=== PATIENT | female | born 1970 | race Caucasian/White ===

== ENCOUNTER → 2022-12-27 13:16 | Outpatient (CLI) | payer BC, SELFPAY ==
--- NOTE | ~2022-12-27 | XR_ITS ---
EXAMINATION: XR lumbar spine 2-3V DATE: 12/27/2022 13:28 INDICATION: Low back injury. Low back pain. TECHNIQUE: 3 views of lumbar spine were obtained. COMPARISON: None. FINDINGS: There is 8 degrees levocurvature of thoracolumbar spine. Vertebral body heights and interve rtebral disc heights are normal. There are endplate osteophytes at multiple levels. There is a sclero tic lesion in L3 vertebral body. 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 IMPRESSION: 1. Mild lumbar spondylosis. 2. Sclerotic lesion in L3 vertebral body, most likely a benign bone island. Metastatic disease cannot be excluded. Consider noncontrast lumbar spine CT . Reviewed, dictated and finalized at location A. RETORT OPERATOR IMPRESSION: 1. Mild lumbar spondylosis. 2. Sclerotic lesion in L3 vertebral body, most likely a benign bone island. Met astatic disease cannot be excluded. Consider noncontrast lumbar spine CT .
== END ==
PROVIDERS: PCP Clinical Nurse Specialist; Visit Provider Clinical Nurse Specialist
DX: M54.50 Low back pain, unspecified (principal); M47.816 Spondylosis without myelopathy or radiculopathy, lumbar region; M89.9 Disorder of bone, unspecified
CPT/HCPCS: 72100

== ENCOUNTER → 2023-01-01 15:31 | Outpatient (CLI) | payer BC, SELFPAY ==
--- NOTE | ~2023-01-01 | CT_ITS ---
EXAMINATION: CT lumbar spine wo con DATE: 01/01/2023 15:52 INDICATION: L3 sclerotic lesion. TECHNIQUE: Computed tomography (CT) of the lumbar spine was performed without intravenous contrast. A utomated exposure control and iterative reconstruction technique were employed. The dose-length produ ct was 541.57 mGy-cm. COMPARISON: Lumbar spine radiographs 12/27/2022 FINDINGS: There is 4 degrees levocurvature of lumbar spine. There is 2 mm anterolisthesis of L4 on L5 . Vertebral body heights are normal. There is a sclerotic lesion in L3 vertebral body with attenuatio n of 1188 HU, consistent with a benign bone island. The intervertebral disc heights are normal in lum bar spine. The following disc levels are specifically discussed: L1-L2: The disc is bulging. There is mild lateral facet joint osteoarthritis. There is no neural fora alejandro stenosis. There is mild central canal stenosis. L2-L3: The disc is bulging. There is moderate right and mild left facet joint osteoarthritis. There i s mild right neural foraminal stenosis. There is mild central canal stenosis. L3-L4: The disc is bulging. There is severe right and moderate left facet joint osteoarthritis. There is mild bilateral neural foraminal stenosis. There is mild central canal stenosis. L4-L5: The disc is bulging. There is severe bilateral facet joint osteoarthritis. There is mild bilat eral neural foraminal stenosis. There is mild central canal stenosis. L5-S1: The disc is bulging. There is severe bilateral facet joint osteoarthritis. There is mild bilat eral neural foraminal stenosis. There is mild central canal stenosis. IMPRESSION: 1. Benign bone island in L3 vertebral body. 2. Mild lumbar spondylosis. Reviewed, dictated and finalized at location A. RAM CONSULTANT
== END ==
PROVIDERS: PCP Clinical Nurse Specialist; Visit Provider Clinical Nurse Specialist
DX: M89.9 Disorder of bone, unspecified (principal); M47.816 Spondylosis without myelopathy or radiculopathy, lumbar region
CPT/HCPCS: 72131

== ENCOUNTER 2023-02-16 09:45 | Outpatient (RCR) | payer BC, SELFPAY ==
[2023-01-04 09:48] VITALS: BP_SYST 150
--- NOTE | 2023-01-04 15:25 | PTOPEVAL1 ---
Assessment and note entered by Francisco Cat, PT, DPT Evaluation Information Assessment Status Evaluation Diagnosis L shoulder pain Onset 3 years Subjective Information Pt states she has had shoulder pain for 3 years after lifting something heavy. She has done varius treatments for it without much relief. Her motion has improved over the years but her pain has not. Pt states waking up intermittently in the night d /t pain. Pt states she is unable to hold her 2 year old granddaughter d/t pain. Reported Pain Level Pain Score 3: Self Report Assessment PT Clinical Summary Laura Moses presents to therapy today for her initial evaluation with a diagnosis of L shoulder and L hip pain. She states the L shoulder is more problematic and she would like to address this first. Today she demonstrates active shoulder ROM that is grossly 150 deg into flexion and abduction , this is WFL but decreased from the uninvolved side. She demonstrates lex shoulder strength that is grossly 4/5. She has increased tenderness to palpation along the anterior muscle belly of her L biceps and into L upper trap but her shoulder pain does not change based on her position. Skilled physical therapy services are indicated to promote improved strength and ROM, to improve mobility, and to limit functional impairments. Plan of Care Interventions Check Out for Orthotic/Pr,Electrical Stimulation, Hot Pack/Cold Pack,Manual Therapy,Neuro Re- education,Patient/Caregiver Educati,Therapeutic Activities,Therapeutic Exercise PT Services Indicated Yes Treatment Frequency and 1x/wk for 6 wks Duration These treatments will address the objective and functional deficits as defined above. The patient will be advanced safely and appropriately in order for the patient to progress towards his/her prior level of function. Additional exercises will be introduced and as well as a comprehensive home exercise program upon discharge, if needed, ?to ensure carryover of functional gains achieved in the clinic. This treatment plan has been reviewed and agreement upon by the patient.
--- NOTE | 2023-01-12 09:12 | PCPTNOTE ---
Pt cancelled todays appt due henrique illness.
--- NOTE | 2023-01-19 09:57 | PCPTNOTE ---
Patient cancelled appointment this date due to arriving at the wrong time.
[2023-02-16 10:02] VITALS: BP_SYST 165
--- NOTE | 2023-02-16 10:45 | PTOPDC ---
Assessment and note entered by Francisco Cat, PT, DPT Evaluation Information Assessment Status Discharge Diagnosis L shoulder pain Onset 3 years Subjective Information Pt arrived 20 mins late for her scheduled appointment this date. Pt states her shoulder still hurts and she has noticed no improvement. She states her arms are more firm, so thats nice . She states the exercises irritate her shoulder. Pt states her shoulder pain gets worse when the kids at her work pull on her arms. Pt states she can now sleep through the night and did not do that before. Reported Pain Level Pain Score 6: Self Report Assessment PT Clinical Summary Laura presents to therapy today for her progress report following 4 visits of skilled therapy to treat pain in her L shoulder. Today she reports no improvements with therapy. Objectively her L shoulder strength and ROM has improved to be equal to her R shoulder. She continues to have increased soft tissue density and trigger points in her L medial scapular region that reproduce her pain. She was instructed in further self soft tissue mobilization and told to follow up with referring provider considering next steps. Plan of Care Interventions Check Out for Orthotic/Pr,Electrical Stimulation, Hot Pack/Cold Pack,Manual Therapy,Neuro Re- education,Patient/Caregiver Educati,Therapeutic Activities,Therapeutic Exercise PT Services Indicated Yes Treatment Frequency and to be discharged Duration
== END 2023-02-16 13:01 | disposition home or self-care (01) ==
LOC: ANHGOSHPT 09:45
PROVIDERS: PCP Clinical Nurse Specialist; Visit Provider Clinical Nurse Specialist
DX: M25.552 Pain in left hip (principal); M25.512 Pain in left shoulder
CPT/HCPCS: 97110; 97112; 97140; 97161; 97530

== ENCOUNTER 2023-04-20 11:09 | Outpatient (CLI) | payer BC, SELFPAY ==
--- NOTE | ~2023-04-20 | MM_ITS ---
EXAMINATION: MM screening [facility] BI w tio HISTORY: Screening mammogram TECHNIQUE: Craniocaudal and mediolateral oblique 3-D tomosynthesis images were obtained and synthetic 2-D images were generated. CAD analysis was submitted and interpreted. COMPARISON: 04/15/2019, 04/03/2019 BREAST PARENCHYMAL COMPOSITION: There are scattered areas of fibroglandular density. FINDINGS: There are changes of interval excisional biopsy in the upper left breast. No suspicious mas s, calcification, or architectural distortion are identified in either breast to suggest malignancy. There has been no suspicious interval change. IMPRESSION: 1. No mammographic evidence of malignancy. 2. Recommend routine screening mammography in one year. BI-RADS Category 2: Benign finding(s). Reviewed, dictated and finalized at location A.
== END 2023-04-20 11:10 | disposition home or self-care (01) ==
PROVIDERS: PCP Pediatrics; Visit Provider Obstetrics & Gynecology
DX: Z12.31 Encounter for screening mammogram for malignant neoplasm of breast (principal)
CPT/HCPCS: 77063; 77067

== ENCOUNTER 2024-06-20 11:02 | Outpatient (CLI) | payer BC, SELFPAY ==
--- NOTE | ~2024-06-20 | MM_ITS ---
EXAMINATION: MM screening [facility] BI w tio HISTORY: Screening TECHNIQUE: Craniocaudal and mediolateral oblique 3-D tomosynthesis images were obtained and synthetic 2-D images were generated. CAD analysis was submitted and interpreted. COMPARISON: Comparison to multiple prior studies sequentially, with oldest reviewed study dated 06/06. BREAST PARENCHYMAL COMPOSITION: Not dense: There are scattered areas of fibroglandular density. FINDINGS: There is architectural distortion in the left breast from previous lumpectomy. There is no evidence of suspicious mass, calcification, or architectural distortion to suggest malignancy in eith er breast. There has been no suspicious interval change. IMPRESSION: 1. No mammographic evidence of malignancy. 2. Recommend routine screening mammography in one year. BI-RADS Category 2: Benign finding(s). Reviewed, dictated and finalized at location B.
== END 2024-06-20 11:03 ==
LOC: MICIMG 11:03
PROVIDERS: PCP Obstetrics & Gynecology; Visit Provider Obstetrics & Gynecology
DX: Z12.31 Encounter for screening mammogram for malignant neoplasm of breast (principal)
CPT/HCPCS: 77063; 77067

== ENCOUNTER 2025-05-27 09:17 | Outpatient (CLI) | payer BC, SELFPAY ==
--- OUTSIDE RECORDS SUMMARY | 2025-05-27 09:26 | XMS_ITS | Data Portability ---
Author Organization [facility], Main Office Address [address] [place] [address] Assessment No assessment recorded. Plan of Treatment Reminders Order Date Submit Date Provider Last Modified By Organization Details Last Modified Time Details Appointments None recorded. Lab None recorded. Referral None recorded. Procedures None recorded. Surgeries None recorded. Imaging None recorded. Medication Orders ciprofloxac in 500 mg tablet 2022 023 [id number], [address], [place], [place], [id number], 12:18:01 Patient TargetsNo targets recorded. Patient InstructionsNo instructions recorded. Reason for Referral None Reported. Results Created Date Observation Date Name Description Value Unit Range Abnormal Flag Note LastModifiedBy Organization Detail LastModifiedTime 10/04/20 21 10/04/2021 urina lysis , dipst ick Leukocytes (reference range: negative parrish/ l) Negati ve Not Available Z_[address], [place], [address], 10/04/2021 14:20:12 10/04/20 21 10/04/2021 urina lysis , dipst ick Nitrite (reference rage: negative mg/dl) negati ve Not Available _[address], [place], [address], 10/04/2021 14:20:12 10/04/20 21 10/04/2021 urina lysis , dipst ick Urobilinogen (reference range: 0.2-1 mg/dl) 0.2 Not Available [address] , [address], [place], [address], 10/04/2021 14:20:12 10/04/20 21 10/04/2021 urina lysis , dipst ick Protein (reference range: negative mg/dl) Negati ve Not Available [address] , [address], [place], [address], 10/04/2021 14:20:12 10/04/20 21 10/04/2021 urina lysis , dipst ick pH (reference range: 5-7) 6.0 Not Available [address] , [address], [place], [address], 10/04/2021 14:20:12 10/04/20 21 10/04/2021 urina lysis , dipst ick Blood (reference range: negative Yaakov/ l) Negati ve Not Available [address] , [address], [place], [address], 10/04/2021 14:20:12 10/04/20 21 10/04/2021 urina lysis , dipst ick Specific Steele (reference range: 1.005-1.030) 1.015 Not Available [address] , [address], [place], [address], 10/04/2021 14:20:12 10/04/20 21 10/04/2021 urina lysis , dipst ick Ketone (reference range: negative mg/dl) Negati ve Not Available [address] , [address], [place], [address], 10/04/2021 14:20:12 10/04/20 21 10/04/2021 urina lysis , dipst ick Bilirubin (reference range: negative mg/dl) Negati ve Not Available [address] , [address], [place], [address], 10/04/2021 14:20:12 10/04/20 21 10/04/2021 urina lysis , dipst ick Glucose (reference range: negative mg/dl) Negati ve Not Available [address] , [address], [place], [address], 10/04/2021 14:20:12 10/04/20 21 10/04/2021 urina lysis , dipst ick Appearance Clear Not Available [address] , [address], [place], [address], 10/04/2021 14:20:12 10/04/20 21 10/04/2021 urina lysis , dipst ick Color Pale Yellow Not Available [address] , [address], [place], [address], 10/04/2021 14:20:12 10/17/20 22 10/17/2022 urina lysis , dipst ick Leukocytes (reference range: negative parrish/ l) Negati ve Not Available [address] , [address], [place], [address], 10/17/2022 16:21:25 10/17/20 22 10/17/2022 urina lysis , dipst ick Nitrite (reference rage: negative mg/dl) negati ve Not Available [address] , [address], [place], [address], 10/17/2022 16:21:25 10/17/20 22 10/17/2022 urina lysis , dipst ick Urobilinogen (reference range: 0.2-1 mg/dl) 0.2 Not Available [address] , [address], [place], [address], 10/17/2022 16:21:25 10/17/20 22 10/17/2022 urina lysis , dipst ick Protein (reference range: negative mg/dl) Negati ve Not Available [address] , [address], [place], [address], 10/17/2022 16:21:25 10/17/20 22 10/17/2022 urina lysis , dipst ick pH (reference range: 5-7) 7.0 Not Available [address] , [address], [place], [address], 10/17/2022 16:21:25 10/17/20 22 10/17/2022 urina lysis , dipst ick Blood (reference range: negative Yaakov/ l) Negati ve Not Available [address] , [address], [place], [address], 10/17/2022 16:21:25 10/17/20 22 10/17/2022 urina lysis , dipst ick Specific Steele (reference range: 1.005-1.030) 1.025 Not Available [address] , [address], [place], [address], 10/17/2022 16:21:25 10/17/20 22 10/17/2022 urina lysis , dipst ick Ketone (reference range: negative mg/dl) Negati ve Not Available [address] , [address], [place], [address], 10/17/2022 16:21:25 10/17/20 22 10/17/2022 urina lysis , dipst ick Bilirubin (reference range: negative mg/dl) Negati ve Not Available [address] , [address], [place], [address], 10/17/2022 16:21:25 10/17/20 22 10/17/2022 urina lysis , dipst ick Glucose (reference range: negative mg/dl) Negati ve Not Available [address] , [address], [place], [address], 10/17/2022 16:21:25 10/17/20 22 10/17/2022 urina lysis , dipst ick Appearance Slight ly Cloudy Not Available [address] , [address], [place], [address], 10/17/2022 16:21:25 10/17/20 22 10/17/2022 urina lysis , dipst ick Color Yellow Not Available [address] , [address], [place], [address], 10/17/2022 16:21:25 10/23/20 22 10/23/2022 COMPR EHENS ALICIA METAB OLIC PANEL sodium 141 mmol/ L 137-14 5 Not Available [facility] (Lab) [address] [place], [address], 10/23/2022 13:24:39 10/23/20 22 10/23/2022 COMPR EHENS ALICIA METAB OLIC PANEL potassium 4.3 mmol/ L 3.5-5. 1 Not Available [facility] (Lab) [address] [place], [address], 10/23/2022 13:24:39 10/23/20 22 10/23/2022 COMPR EHENS ALICIA METAB OLIC PANEL chloride 105 mmol/ L 98-107 Not Available [facility] (Lab) [address] [place], [address], 10/23/2022 13:24:39 10/23/20 22 10/23/2022 COMPR EHENS ALICIA METAB OLIC PANEL carbon dioxide 28 mmol/ L 22-30 Not Available [facility] (Lab) [address] [place], [address], 10/23/2022 13:24:39 10/23/20 22 10/23/2022 COMPR EHENS ALICIA METAB OLIC PANEL anion gap 12.3 mmol/ L 14-22 low Not Available [facility] (Lab) [address] [place], [address], 10/23/2022 13:24:39 10/23/20 22 10/23/2022 COMPR EHENS ALICIA METAB OLIC PANEL glucose 90 mg/dL 70-99 Not Available [facility] (Lab) [address] [place], [address], 10/23/2022 13:24:39 10/23/20 22 10/23/2022 COMPR EHENS ALICIA METAB OLIC PANEL BUN 12 mg/dL 8-19 Not Available [facility] (Lab) [address] [place], [address], 10/23/2022 13:24:39 10/23/20 22 10/23/2022 COMPR EHENS ALICIA METAB OLIC PANEL creatinine 0.84 mg/dL 0.66-1 .25 Not Available [facility] (Lab) [address] [place], [address], 10/23/2022 13:24:39 10/23/20 22 10/23/2022 COMPR EHENS ALICIA METAB OLIC PANEL GFR >60 Refer ence Range : Amston ge GFR Healt hy Adult : >60 mL/mi n/1.7 3 m2 Chron ic Kidne y Disea se: 15-60 mL/mi n/1.7 3 m2 Kidne y Failu re: <15/m L/min /1.73 m2 www.n iddk. nih.g ov The MDRD study equat ion has not been valid ated in child arelis <18 years of age; pregn ant women ; the elder ly >85 years of age; or in some racia l or ethni c subgr oups, such as Hispa nics. Outsi de the valid ated wilton eters , estim ated GFR is less accur ate, requi ring clini renée judgm ent on a case- by-ca se basis . Clini renée inter preta tion for other races and ages must be made by the clini valerie. The MDRD study equat ion has not been valid ated for the evalu ation of serum creat inine relat ed to nutri yvette l statu s or medic ation usage . For perso ns <18 years of age, a pedia tric GFR calcu lator is avail able on the [facility] websi te: https ://laxmi mustafa.aime floyd.o marc/pr ryan pascualal s/kdo qi/gf r_cal culat or Not Available [facility] (Lab) [address] [place], [address], 10/23/2022 13:24:39 10/23/20 22 10/23/2022 COMPR EHENS ALICIA METAB OLIC PANEL alkaline phosphatase 63 U/L 38-126 Not Available [facility] (Lab) [address] [place], [address], 10/23/2022 13:24:39 10/23/20 22 10/23/2022 COMPR EHENS ALICIA METAB OLIC PANEL alanine aminotransfe rase 15 U/L 0-35 Not Available [facility] (Lab) [address] [facility] [place], [address], 10/23/2022 13:24:39 10/23/20 22 10/23/2022 COMPR EHENS ALICIA METAB OLIC PANEL aspartate aminotransfe rase 23 U/L 15-37 Not Available [facility] (Lab) [address] [place], [address], 10/23/2022 13:24:39 10/23/20 22 10/23/2022 COMPR EHENS ALICIA METAB OLIC PANEL bilirubin, total 0.50 mg/dL 0.20-1 .30 Not Available [facility] (Lab) [address] [place], [address], 10/23/2022 13:24:39 10/23/20 22 10/23/2022 COMPR EHENS ALICIA METAB OLIC PANEL calcium 8.8 mg/dL 8.4-10 .2 Not Available [facility] (Lab) [address] [place], [address], 10/23/2022 13:24:39 10/23/20 22 10/23/2022 COMPR EHENS ALICIA METAB OLIC PANEL total protein 6.8 g/dL 6.3-8. 2 Not Available [facility] (Lab) [address] [place], [address], 10/23/2022 13:24:39 10/23/20 22 10/23/2022 COMPR EHENS ALICIA METAB OLIC PANEL albumin 3.9 g/dL 3.4-5. 0 Not Available [facility] (Lab) [address] [place], [address], 10/23/2022 13:24:39 10/23/20 22 10/23/2022 COMPR EHENS ALICIA METAB OLIC PANEL globulin 2.9 g/dL 2.6-4. 2 Not Available [facility] (Lab) [address] [place], [address], 10/23/2022 13:24:39 10/23/20 22 10/23/2022 COMPR EHENS ALICIA METAB OLIC PANEL A/G ratio 1.3 ratio 1.0-2. 0 Not Available [facility] (Lab) [address] [place], [address], 10/23/2022 13:24:39 10/23/20 22 10/23/2022 LIPID PANEL cholesterol 222 mg/dL 140-19 9 high NIH MOUNIKA NSUS RECOM MENDA TION FOR JOHN STERO L: ADULT CHILD LOW RISK: <200 <170 BORDE RLINE : <200- 239 ----- HIGH RISK: >240 >200 Not Available [facility] (Lab) [address] [place], [address], 10/23/2022 13:24:34 10/23/20 22 10/23/2022 LIPID PANEL triglyceride s 183 mg/dL 0-150 high NIH MOUNIKA NSUS REPOR T RECOM MENDA TION FOR TRIGL YCERI LAKEISHA: ADULT CHILD LOW RISK: <150 ----- BODER LINE: 150-1 99 ----- HIGH RISK: >200 ----- Not Available [facility] (Lab) [address] [place], [address], 10/23/2022 13:24:34 10/23/20 22 10/23/2022 LIPID PANEL HDL cholesterol 44 mg/dL 40- Not Available [facility] (Lab) [address] [place] [address], [address], 10/23/2022 13:24:34 10/23/20 22 10/23/2022 LIPID PANEL LDL cholesterol, calculated 141 mg/dL 0-130 high NIH MOUNIKA NSUS REPOR T RECOM MENDA TIONS FOR LDL: ADULT CHILD LOW RISK <130 <110 (OPTI MAL LDL) <100 ----- BORDE RLINE : 130-1 59 ----- HIGH RISK: >160 >130 A TRIGL YCERI DE RESUL T >400 INVAL IDATE S THE CALCU LATIO N FOR LDL FRACT IONAT ION - THE LDL RESUL T WILL NOT BE REPOR SHAUN. Not Available [facility] (Lab) [address], [place], [address], 10/23/2022 13:24:34 11/01/[address], abdom en + pelvi s, w/o contr ast [facility] [address], [place] [address] [phone] Patien t Name: LAURA MONCADA Access ion #: [id number] Sex: F : 1969 6 Locati on: RA2 Attend ing Physic marilu: ELKHAT IB, RUNDA Orderi ng Physic marilu: ELKHAT IB, RUNDA Exam Date: 021 8:08 AM Exam Name: CT ABDOME N/PELV IS WO Admitt ing Diagno sis(es ): RADIOL OGY REPORT - FINAL EXAM: CT ABDOME N/PELV IS WO HISTOR Y: renal angle tender ness 51-yea r-old female with right flank pain, cloudy urine, lower abdomi nal pain and tender ness, abnorm al weight loss for the past year. COMPAR JAMEL: None availa ble. TECHNI QUE: Helica l CT images of the abdome n and pelvis were perfor med with oral contra st and withou t IV contra st. Sagitt al and yoder l reform atted images were obtain ed. This CT exam was perfor med using one or more of the follow ing dose reduct ion techni ques: Automa shaun exposu re contro l, adjust ment of the mA and/or kv accord ing to patien t size, or the use of iterat alicia recons tructi on techni ques. Page 1 of 3 [facility] Name: LAURA MONCADA Access ion #: [id number] Sex: F : 1969 6 Exam Date: 021 8:08 AM Exam Name: CT ABDOME N/PELV IS WO Admitt ing Diagno sis(es ): FINDIN GS: CT abdome n: The lung bases are clear. There are multip le small hypode nse lesion s in the liver which may repres ent cysts and/or hamart omas. The noncon trast spleen , gallbl adder, pancre as, kidney s, and adrena l glands are unrema rkable . No abdomi nal aortic aneury sm. There is a small fatty umbili renée hernia . CT pelvis : No abnorm al bowel dilata tion, free air, free fluid, or suspic ious adenop athy. There is fecal retent ion in the colon. There is mild urinar y bladde r wall thicke odessa. The uterus is surgic ally absent . The append ix and urinar y bladde r are unrema rkable . There is modera te to severe lower lumbar degene rative disc diseas e and facet arthro mejia. There are mild degene rative change s of the hips and sacroi liac joints . IMPRES OZIEL: 1. Mild urinar y bladde r wall thicke odessa sugges tive of cystit is. 2. Fecal retent ion in the colon sugges tive of consti pation . 3. Postop erativ e change s of hyster ectomy . 4. Lower lumbar degene rative disc diseas e and facet arthro mejia. 5. No eviden ce of urinar y tract calcul i, urinar y tract obstru ction, bowel obstru ction, acute append icitis , or other acute proces s in the abdome n or pelvis . Create d and electr onical ly signed by: Lasha gabriel MD Signed Date: 10:08 AM (CT) Dictat ed by: aLsha gabriel MD Page 2 of 3 [facility] Patien t Name: LAURA MONCADA Access ion #: [id number] Sex: F : 1969 6 Exam Date: 8:08 AM Exam Name: CT ABDOME N/PELV IS WO Admitt ing Diagno sis(es ): DD: 12/7/2 021 10:08 AM (CT) DT: 021 10:08 AM (CT) Page 3 of 3 [facility].[id number] [facility] (Imaging) [address] [place], [address], 01/24/2023 08:55:09 Result Notes Documentation Provider Name and Address Organization Details Recorded Time Ct, Abdomen + Pelvis, W/o Contrast : [facility] [address] [place] [address] Patient Name: LAURA MONCADA Sex: F : 1970 Location: [facility] Attending Physician: KHADRA JURADO Ordering Physician: KHADRA JURADO Exam Date: 11/01/2021 8:08 AM Exam Name: CT ABDOMEN/PELVIS WO Admitting Diagnosis(es): RADIOLOGY REPORT - FINAL EXAM: CT ABDOMEN/PELVIS WO HISTORY: renal angle tenderness 51-year-old female with right flank pain, cloudy urine, lower abdominal pain and tenderness, abnormal weight loss for the past year. COMPARISON: None available. TECHNIQUE: Helical CT images of the abdomen and pelvis were performed with oral contrast and without IV contrast. Sagittal and coronal reformatted images were obtained. This CT exam was performed using one or more of the following dose reduction techniques: Automated exposure control, adjustment of the mA and/or kv according to patient size, or the use of iterative reconstruction techniques. Page 1 of 3 [facility] Patient Name: LAURA MONCADA Sex: F : 1970 Exam Date: 11/01/2021 8:08 AM Exam Name: CT ABDOMEN/PELVIS WO Admitting Diagnosis(es): FINDINGS: CT abdomen: The lung bases are clear. There are multiple small hypodense lesions in the liver which may represent cysts and/or hamartomas. The noncontrast spleen, gallbladder, pancreas, kidneys, and adrenal glands are unremarkable. No abdominal aortic aneurysm. There is a small fatty umbilical hernia. CT pelvis: No abnormal bowel dilatation, free air, free fluid, or suspicious adenopathy. There is fecal retention in the colon. There is mild urinary bladder wall thickening. The uterus is surgically absent. The appendix and urinary bladder are unremarkable. There is moderate to severe lower lumbar degenerative disc disease and facet arthropathy. There are mild degenerative changes of the hips and sacroiliac joints. IMPRESSION: 1. Mild urinary bladder wall thickening suggestive of cystitis. 2. Fecal retention in the colon suggestive of constipation. 3. Postoperative changes of hysterectomy. 4. Lower lumbar degenerative disc disease and facet arthropathy. 5. No evidence of urinary tract calculi, urinary tract obstruction, bowel obstruction, acute appendicitis, or other acute process in the abdomen or pelvis. Created and electronically signed by: Lasha Mckoy MD Signed Date: 11/01/2021 10:08 AM (CT) Dictated by: Lasha Mckoy MD Page 2 of 3 [facility] Patient Name: LAURA MONCADA Sex: F : 1970 Exam Date: 11/01/2021 8:08 AM Exam Name: CT ABDOMEN/PELVIS WO Admitting Diagnosis(es): (CT) (CT) Page 3 of 3 Not Available [facility] 01/24/2023 08:55:10 Problems Name Problem SNOMED Code Status Onset Date Resolution Date Notes Provider Name and Address Organization Details Recorded Time Una daltont 926313096 Active Not Available [facility] 3 08:50:11 Acute otitis media 1522297 Active 023 MISAEL Yanes [address] [facility] [address], [place], [address], [facility] 3 12:17:02 Problem Notes None recorded. Procedures Surgical History Date Name Laterality Status Provider Name and Address Organization Details Recorded Time 2 Colonoscopy completed Not Available [facility] 01/25/20 23 08:45:29 Imaging Results None recorded. Procedure Notes None recorded. Medical Equipment None Reported. Allergies Allergen ID Allergen Name Allergen Category Reaction Reaction Severity Criticality Documentation Date Start Date Code Code System Note Provider Name and Address Organization Details Recorded Time 86690 Substance with sulfonami de structure and antibacte rial mechanism of action (substanc e) medicatio n Not available Not available Not available 01/24/2023 27623 8003 SNOMED Not Available [facility] 3 08:55:03 Medications Name Sig Start Date Stop Date Status Note LastModified by Organization Details LastModified Time atorvastati n 10 mg tablet TAKE 1 TABLET BY MOUTH EVERY DAY active Not Available Not Available No t Available benzonatate 200 mg capsule active Not Available Not Available Not Available Patanol 0.1 % eye drops active Not Available Not Available Not Available terconazole 0.8 % vaginal cream DIRECTED VAGINALLY AT BEDTIME FOR 3 NIGHTS DIRECTED active Not Available Not Available No t Available levofloxaci n 250 mg tablet TAKE 1 TABLET BY MOUTH EVERY DAY FOR 5 DAYS 10/17 completed Not Available Not Available Not Available ciprofloxac in 500 mg tablet TAKE 1 TABLET BY MOUTH TWICE DAILY UNTIL ALL TAKEN active Not Available Not Available No t Available tramadol 50 mg tablet 06/19 completed Not Available Not Available Not Available meclizine 25 mg tablet Take 1 tablet 3 times a day by oral route as needed. active Not Available Not Available No t Available cephalexin 500 mg capsule TAKE ONE CAPSULE BY MOUTH TWICE DAILY FOR 7 DAYS 10/17 completed Not Available Not Available Not Available clotrimazol e-betametha sone 1 %-0.05 % topical cream APPLY TOPICALLY TO THE AFFECTED AREA THREE TIMES DAILY active Not Available Not Available No t Available estradiol 0.01% (0.1 mg/gram) vaginal cream INSTERT 0.5 GRAM VAGINALLY THREE TIMES A WEEK active Not Available Not Available No t Available methylpredn isolone 4 mg tablets in a dose pack TK NYD 06/19 completed Not Available Not Available Not Available fluticasone propionate 50 mcg/actuati on nasal spray,suspe nsion active Not Available Not Available Not Available cyclobenzap rine 5 mg tablet TAKE 1 TABLET BY MOUTH EVERY DAY NEEDED active Not Available Not Available No t Available nitrofurant oin monohydrate /macrocryst als 100 mg capsule TAKE 1 CAPSULE BY MOUTH AFTER COITUS active Not Available Not Available No t Available Fluvirin 0850-4951 45 mcg (15 mcg x 3)/0.5 mL intramuscul ar suspension INJECT 0.5 ML INTRAMUSC ULARLY DIRECTED. 01/02 completed Not Available Not Available Not Available Fluzone Quad (PF) 60 mcg(15 mcgx4)/0.5 mL intramuscul ar syringe ADM 0.5ML IM UTD 06/19 completed Not Available Not Available Not Available Afluria Qd (36 mos up)(PF)60 mcg (15 mcg x4)/0.5 mL IM syringe ADM 0.5ML IM UTD 12/17 completed Not Available Not Available Not Available ID NOW COVID-19 Test Kit TEST DIRECTED 11/01 completed Not Available Not Available Not Available COVID-19 test specimen collection TEST DIRECTED 11/01 completed Not Available Not Available Not Available Vitals Date Recorded Body mass index (BMI) Body height Oxygen saturation Oxygen saturation in Arterial blood by Pulse oximetry Heart rate Body temperature Body weight Systolic blood pressure Diastolic blood pressure Provider Name and Address Organization Details Last Updated DateTime 1 33.6 kg/m2 142.24 cm 97 % 97 % 81 /min 96.7 [degF] 67595.8 6 g 122 mm[Hg] 88 mm[Hg] Not Available [facility] 3 08:48:14 Date Recorded Body mass index (BMI) Body height Oxygen saturation Oxygen saturation in Arterial blood by Pulse oximetry Heart rate Body temperature Body weight Systolic blood pressure Diastolic blood pressure Provider Name and Address Organization Details Last Updated DateTime 2 32.3 kg/m2 142.24 cm 99 % 99 % 98 /min 97.7 [degF] 68394.3 g 130 mm[Hg] 84 mm[Hg] Not Available [facility] 3 08:48:14 Date Recorded Body weight Body temperature Heart rate Oxygen saturation Oxygen saturation in Arterial blood by Pulse oximetry Systolic blood pressure Diastolic blood pressure Provider Name and Address Organization Details Last Updated DateTime 3 03156.1 9 g 98 [degF] 84 /min 97 % 97 % 128 mm[Hg] 86 mm[Hg] TODD Collins [place] [employer] [facility] 3 11:58:54 Social History None recorded. Functional Status None recorded. Mental Status None recorded. Family History Nothing Reported. Medical History No medical history recorded. Gynecological HistoryNo gynecological history recorded. Obstetrics History GPAL:G 0 P 0 0 0 0 Immunizations Vaccine Type Date Status Note Provider Nam e and Address Organization Details Recorded Time Influenza, split virus, quadrivalent, preservative 1 completed Not Available [facility] 01/24/2023 08:54:57 SARS-COV-2 (COVID-19) vaccine, UNSPECIFIED 1 completed Not Available [facility] 01/24/2023 08:54:57 Past Encounters Encounter ID Performer Location Encounter Start Date Encounter Closed Date Diagnosis/Indication Diagnosis SNOMED-CT Code Diagnosis ICD10 Code Diagnosis Note [id number] Khadra Persaud MD [facility] [address] [facility] , [place] [address] 10/04/2021 00:00:00 10/04/2021 19:52:55 [id number] Khadra Persaud MD [facility] [address] [facility] [place] [address] 10/17/2022 00:00:00 10/17/2022 20:17:12 [id number] Khadra Persaud MD [facility] [address] [facility] , [place] [address] 10/25/2023 11:40:39 10/25/2023 12:21:20 Acute otitis media 8873822 H66.92 Health Concerns Section Related Observation LastModified by Organization Detai ls LastModified Time None Recorded Concern Status LastModified by Organization Details LastModified Time None Recorded Advance Directives Directive None Recorded Payers Insurance Date Sequence Insurance Name Policy Number Policy Sotelo Covered Member ID Sotelo Member ID Guarantor Name 11/06/2023 1 [employer] [id number] Rishi Moncada [id number] Laura Moncada Notes Date Note Type Note Provider Name and Address Organization Details Recorded Time 10/25/2023 text/html left ear really hurts MISAEL Yanes [address] [facility], [facility] [address], [place], [address], [facility] 10/28/2023 23:18:07 OBGyn Episode No OBEpisode recorded.
[2025-05-27 12:29] LABS: Hematocrit 44.3 % (37.0-47.0); Hemoglobin 14.2 g/dL (12.0-15.0); Immature Granulocyte Percent A 0.2 % (0-0.5); Lymphocytes Absolute Auto 2.17 K/mm3 (0.9-3.2); Mean Corpuscular HGB Conc 32.1 g/dl (32-36); Mean Corpuscular Hemoglobin 29.0 pg (26-34); Mean Corpuscular Volume 90.4 fl (80-100); Nucleated Red Blood Cells Absolute Auto 0.000 K/mm3 (0.0-0.012); Nucleated Red Blood Cells Perc 0.0 % (0.0-0.2); Platelet Count Result 351 k/mm3 (150-375); Red Blood Count 4.90 M/mm3 (4.2-5.4); White Blood Count 6.1 K/mm3 (4.5-10.0)
[2025-05-27 14:31] LABS: Alanine Aminotransferase 10 U/L (6-35); Albumin Level 4.4 g/dL (3.5-5.1); Alkaline Phosphatase 56 U/L (38-126); Anion Gap 10 mmol/L (4-12); Aspartate Amino Transferase 47 U/L (14-36); Bilirubin,Total 0.5 mg/dL (0.2-1.3); Blood Urea Nitrogen 14 mg/dL (7-17); Calcium 9.5 mg/dL (8.4-10.2); Carbon Dioxide 30 mmol/L (22-30); Chloride 102 mmol/L (98-107); Cholesterol 285 mg/dL (0-200); Estimated Glomerular Filt Rate > 60; Glucose 71 mg/dL (65-110); HDL Direct 45 mg/dL; Potassium 3.9 mmol/L (3.4-5.0); Sodium 142 mmol/L (137-145); Total Protein 8.2 g/dL (6.3-8.2); Triglycerides 107 mg/dL (<150)
[2025-05-27 15:00] LABS: Hemoglobin A1C. 5.1 % (<5.7)
[2025-05-27 15:02] LABS: Thyroid Stimulating Hormone 1.970 uIU/mL (0.465-4.680)
== END 2025-05-27 09:18 | disposition home or self-care (01) ==
LOC: ANHGOSHLAB 09:18
PROVIDERS: PCP Clinical Nurse Specialist; Visit Provider Clinical Nurse Specialist
DX: E55.9 Vitamin D deficiency, unspecified (principal); R73.01 Impaired fasting glucose; Z13.220 Encounter for screening for lipoid disorders; Z13.228 Encounter for screening for other metabolic disorders
CPT/HCPCS: 36415; 80053; 80061; 82306; 83036; 84443; 85025

== ENCOUNTER 2025-11-16 07:46 | Outpatient (CLI) | payer BC, SELFPAY ==
--- NOTE | ~2025-11-16 | MM_ITS ---
EXAMINATION: MM screening ruma BI w tio HISTORY: Screening. TECHNIQUE: Craniocaudal and mediolateral oblique 3-D tomosynthesis images were obtained and synthetic 2-D images were generated. CAD analysis was submitted and interpreted. COMPARISON: 2023 and 2022 BREAST PARENCHYMAL COMPOSITION: Not Dense: There are scattered areas of fibroglandular FINDINGS: No suspicious masses are seen. There are no suspicious calcifications. Postop changes are again noted on the left. No unexplained architectural distortion is seen. There are no skin or nipple abnormalities identified. There is no adenopathy seen on the images submitted. IMPRESSION: No mammographic evidence to suggest malignancy is seen. The patient may return to screening mammography as per ACR guidelines. BI-RADS 2 - Benign. Reviewed, dictated and finalized at location C. E SUPERVISOR
== END 2025-11-16 07:47 | disposition home or self-care (01) ==
PROVIDERS: PCP Internal Medicine; Visit Provider Obstetrics & Gynecology
DX: Z12.31 Encounter for screening mammogram for malignant neoplasm of breast (principal)
CPT/HCPCS: 77063; 77067

== ENCOUNTER 2025-11-16 08:57 | Outpatient (CLI) | payer BC, SELFPAY ==
[2025-11-16 14:12] LABS: Alanine Aminotransferase 15 U/L (6-35); Albumin Level 4.0 g/dL (3.5-5.1); Alkaline Phosphatase 59 U/L (38-126); Aspartate Amino Transferase 42 U/L (14-36); Bilirubin,Total 0.5 mg/dL (0.2-1.3); Total Protein 7.2 g/dL (6.3-8.2)
== END 2025-11-16 08:58 | disposition home or self-care (01) ==
LOC: ANHGOSHLAB 08:59
PROVIDERS: PCP Internal Medicine; Visit Provider Nurse Practitioner
DX: R74.01 Elevation of levels of liver transaminase levels (principal)
CPT/HCPCS: 36415; 80076